=== PATIENT | female | born 1980 | race Caucasian/White ===

== ENCOUNTER 2016-11-04 09:55 | Outpatient (CLI) | payer OTHER ==
[2016-11-04 10:51] LABS: *BILIRUBIN,URIN NEGATIVE (NEGATIVE); *BLOOD, URINE NEGATIVE (NEGATIVE); *CLARITY,URINE CLEAR (CLEAR); *COLOR,URINE YELLOW (YELLOW); *KETONES,URINE NEGATIVE (NEGATIVE); *PROTEIN,URINE NEGATIVE (NEGATIVE); *UROBILINOGEN,URINE 0.2 E.U./dl (NORMAL); BASOPHILS # (AUTO) 0.1 K/uL (0.0-0.2); BASOPHILS % (AUTO) 1.4 % (0.0-2.0); CALCIUM 8.9 mg/dL (8.5-10.1); CREATININE 0.7 mg/dL (0.6-1.3); EOSINOPHILS % (AUTO) 1.2 % (0.0-7.0); HEMATOCRIT 44.1 % (37.0-47.0); HEMOGLOBIN 14.4 g/dL (12.0-16.0); LEUKOCYTE ESTERASE ,URINE NEGATIVE (NEGATIVE); LYMPHOCYTES # (AUTO) 1.4 K/uL (0.8-4.8); LYMPHOCYTES % (AUTO) 36.3 % (20.5-51.5); MEAN CORPUSCULAR HGB CONC 33 g/dL (32.0-37.0); MEAN CORPUSCULAR VOLUME 91.5 fL (81.0-99.0); MONOCYTES # (AUTO) 0.3 K/uL (0.1-1.30); MONOCYTES % (AUTO) 7.2 % (0.0-11.0); NEUTROPHILS # (AUTO) 2.2 K/uL (1.8-8.9); NEUTROPHILS % (AUTO) 53.9 % (38.5-71.5); NITRITE, URINE NEGATIVE (NEGATIVE); PLATELET COUNT (AUTO) 199 K/uL (150-450); RED BLOOD CELL COUNT(AUTO) 4.82 MIL/uL (4.20-5.40); RED CELL DISTRIBUTION WIDTH 12.7 % (11.5-14.5); UGLUCOSE NEGATIVE (NEGATIVE)
[2016-11-04 10:55] LABS: ALBUMIN 3.7 g/dL (3.4-5.0); BILIRUBIN,TOTAL 0.4 mg/dL (0.2-1.0); TOTAL PROTEIN, SERUM 7.6 g/dL (6.4-8.2)
[2016-11-04 11:07] LABS: BACTERIA,URINE FEW /HPF (NONE SEEN); RBC,URINE 0-3 /HPF (0-3); SQUAMOUS EPITHELIAL CELL,UR MODERATE /HPF (NONE SEEN); WBC,URINE 0-3 /HPF (0-3)
== END 2016-11-04 23:59 | disposition home or self-care (01) ==
LOC: LAB 09:55
PROVIDERS: ATTEND Internal Medicine
DX: Z01.818 Encounter for other preprocedural examination (principal)
CPT/HCPCS: 36415; 85025; 85730

== ENCOUNTER 2016-11-06 09:07 | Day surgery (SDC) | payer OTHER ==
[2016-11-06] MEDS ORDERED: BUPIVACAINE PF 0.5% 30 ML VIAL ONE (09:51)
[2016-11-06] MEDS ORDERED: POLYMYXIN B SULFATE 500,000 UNITS, BACITRACIN 50,000 UNITS, NORMAL SALINE 20 ML MC ONE ×3 (10:00)
[2016-11-06 10:15] LABS: *URINE HCG, QUAL NEGATIVE (NEGATIVE)
[2016-11-06] MEDS ORDERED: MIDAZOLAM HCL 2 MG/2 ML VIAL ONE (11:34)
[2016-11-06] MEDS ORDERED: DEXAMETHASONE SOD PHOSPHATE 4 MG INJ IV ONE (11:45)
[2016-11-06] MEDS ORDERED: IV LACTATED RINGERS SOLUTION 1,000 ML BAG MC ONE (11:45)
[2016-11-06] MEDS ORDERED: PROPOFOL 200 MG/20 ML BOTTLE IV ONE (11:45)
[2016-11-06] MEDS ORDERED: ONDANSETRON 4 MG/2 ML VIAL IV ONE (11:45)
[2016-11-06] MEDS ORDERED: LIDOCAINE HCL 1% 20 ML VIAL MC ONE (11:45)
[2016-11-06] MEDS ORDERED: SEVOFLURANE 250 ML BOTTLE IH ONE (11:45)
[2016-11-06] MEDS ORDERED: CEFAZOLIN 1 G VIAL MC ONE (11:45)
[2016-11-06] MEDS ORDERED: FENTANYL CITRATE 100 MCG/2 ML AMPUL ONE (13:21)
[2016-11-06] MEDS ORDERED: HYDROCODONE/APAP 5-325MG TABLET ONE (14:07)
== END 2016-11-06 14:45 | disposition home or self-care (01) ==
LOC: DS 09:07
PROVIDERS: ATTEND Orthopaedic Surgery
DX: G56.01 Carpal tunnel syndrome, right upper limb (principal); K58.9 Irritable bowel syndrome, unspecified; F41.9 Anxiety disorder, unspecified; L93.0 Discoid lupus erythematosus; Z87.891 Personal history of nicotine dependence
CPT/HCPCS: 84703; A4649; A4663; J0690; J1100; J2250; J2405; J3010; J3490; J7120

== ENCOUNTER 2019-01-10 09:55 | Outpatient (CLI) | payer OTHER ==
[2019-01-10 10:21] LABS: BASOPHILS % (AUTO) 0.6 % (0.0-2.0); EOSINOPHILS # (AUTO) 0.1 K/uL (0.0-0.7); EOSINOPHILS % (AUTO) 1.2 % (0.0-7.0); HEMOGLOBIN 14.4 g/dL (10.9-14.3); LYMPHOCYTES # (AUTO) 1.5 K/uL (20.0-40.0); MEAN CORPUSCULAR HEMOGLOBIN 30.4 uug (24.7-32.8); MEAN CORPUSCULAR HGB CONC 33 g/dL (32.3-35.6); MEAN CORPUSCULAR VOLUME 91.1 fL (75.5-95.3); MONOCYTES # (AUTO) 0.2 K/uL (2.0-10.0); MONOCYTES % (AUTO) 5.4 % (0.0-11.0); NEUTROPHILS # (AUTO) 2.6 K/uL (1.8-8.9); NEUTROPHILS % (AUTO) 58.8 % (38.5-71.5); PLATELET COUNT (AUTO) 194 K/uL (179-408); RED BLOOD CELL COUNT(AUTO) 4.72 MIL/uL (3.63-4.92); WHITE BLOOD COUNT (AUTO) 4.3 K/uL (3.8-11.8)
[2019-01-10 10:23] LABS: *BILIRUBIN,URIN NEGATIVE (NEGATIVE); *BLOOD, URINE NEGATIVE (NEGATIVE); *CLARITY,URINE CLEAR (CLEAR); *COLOR,URINE DARK YELLOW (YELLOW); *KETONES,URINE NEGATIVE (NEGATIVE); *UROBILINOGEN,URINE 0.2 E.U./dl (NORMAL); LEUKOCYTE ESTERASE ,URINE TRACE (NEGATIVE); NITRITE, URINE NEGATIVE (NEGATIVE); UGLUCOSE NEGATIVE (NEGATIVE)
[2019-01-10 10:29] LABS: MUCUS,URINE FEW /LPF (0-FEW); SQUAMOUS EPITHELIAL CELL,UR FEW /HPF (NONE SEEN)
[2019-01-10 10:30] LABS: BACTERIA,URINE NONE SEEN /HPF (NONE SEEN); CREATININE 0.7 mg/dL (0.6-1.3); POTASSIUM 3.6 mmol/L (3.5-5.1); RBC,URINE 0-3 /HPF (0-3); WBC,URINE 0-3 /HPF (0-3)
== END 2019-01-10 23:59 | disposition home or self-care (01) ==
LOC: LAB 09:55
PROVIDERS: ATTEND Orthopaedic Surgery
DX: Z01.818 Encounter for other preprocedural examination (principal); G56.02 Carpal tunnel syndrome, left upper limb
CPT/HCPCS: 36415; 85025; 85610; 85730

== ENCOUNTER 2019-01-14 07:19 | Day surgery (SDC) | payer OTHER ==
[2019-01-14] MEDS ORDERED: DEXAMETHASONE SOD PHOSPHATE 4 MG INJ IV ONE (07:20)
[2019-01-14] MEDS ORDERED: IRR NORMAL SALINE IRRIGATION 1,000 ML BOTTLE IR ONE (07:20)
[2019-01-14] MEDS ORDERED: METOCLOPRAMIDE HCL 10 MG/2 ML VIAL IV ONE (07:20)
[2019-01-14] MEDS ORDERED: IV NORMAL SALINE 1000 ML BAG IV ONE (07:20)
[2019-01-14] MEDS ORDERED: SEVOFLURANE 250 ML BOTTLE IH ONE (07:20)
[2019-01-14] MEDS ORDERED: PROPOFOL 200 MG/20 ML BOTTLE IV ONE (07:20)
[2019-01-14] MEDS ORDERED: LIDOCAINE-MPF 2% 5 ML VIAL MC ONE (07:20)
[2019-01-14] MEDS ORDERED: ONDANSETRON 4 MG/2 ML VIAL IV ONE (07:20)
[2019-01-14] MEDS ORDERED: MIDAZOLAM HCL 2 MG/2 ML VIAL ONE (07:30)
[2019-01-14] MEDS ORDERED: FENTANYL CITRATE 100 MCG/2 ML AMPUL ONE ×2 (07:30→11:10)
[2019-01-14 07:39] LABS: *URINE HCG, QUAL NEGATIVE (NEGATIVE)
[2019-01-14] MEDS ORDERED: BUPIVACAINE PF 0.5% 30 ML VIAL ONE (07:42)
[2019-01-14] MEDS ORDERED: POLYMYXIN B SULFATE 500,000 UNITS, BACITRACIN 50,000 UNITS, NORMAL SALINE 20 ML MC ONE ×3 (07:45)
[2019-01-14] MEDS ORDERED: TRAMADOL HCL 50 MG TABLET ONE (11:50)
== END 2019-01-14 12:31 | disposition home or self-care (01) ==
LOC: DS 07:19
PROVIDERS: ATTEND Orthopaedic Surgery
DX: G56.02 Carpal tunnel syndrome, left upper limb (principal); Z88.2 Allergy status to sulfonamides; Z79.899 Other long term (current) drug therapy; Z98.890 Other specified postprocedural states
CPT/HCPCS: 64721; 84703; J1100; J2250; J2405; J2765; J3010 ×2; J3490 ×4; J7120; A4217; A4649; A4663; J7030